=== PATIENT | female | born 1990 | race Caucasian/White ===

== ENCOUNTER 2016-08-18 17:42 | Emergency (ER) | payer OTHER ==
[2016-08-18 17:43] VITALS: BMI 33.5
[2016-08-18 17:54] VITALS: BP 118/53; PULSE 101; RESP 17; TEMP 97.7; O2SAT 98
--- NOTE | 2016-08-18 18:36 | ED PDOC ---
HPI: General Adult Time Seen by Provider: 08/18/16 17:56 Chief Complaint (Nursing): ENT Problem Chief Complaint (Provider): Nasal congestion, pressure at bridge of nose History Per: Patient History/Exam Limitations: no limitations Onset/Duration Of Symptoms: Days Have you had recent travel within the past 21 days to any of the following countries: [place], [place], [place] or [place]?: No Current Symptoms Are (Timing): Still Present Additional Complaint(s): PT states she was given Tx for benadryl last week and used it once but it did not work. PT states she saw her OB today but he told her to take benadryl. Past Medical History Reviewed: Historical Data, Nursing Documentation, Vital Signs Vital Signs: Last Vital Signs Temp 97.7 F 08/18/16 17:51 Pulse 101 H 08/18/16 17:51 Resp 17 08/18/16 17:51 BP 118/53 L 08/18/16 17:51 Pulse Ox 98 08/18/16 18:35 - Medical History PMH: Asthma, HIV - Surgical History Surgical History: Tonsillectomy - Family History Family History: States: No Known Family Hx - Living Arrangements Living Arrangements: With Family - Social History Current smoker - smoking cessation education provided: No Alcohol: None Drugs: Denies - Immunization History Hx Tetanus Toxoid Vaccination: No Hx Influenza Vaccination: No Hx Pneumococcal Vaccination: No - Home Medications Home Medications: Ambulatory Orders Medication Instructions Recorded Acetaminophen 325 mg PO Q4 #30 capsule 04/28/16 Ondansetron [Zofran] 4 mg PO Q8H #12 tab 04/28/16 Amoxicillin 500 mg PO BID #20 tablet 06/03/16 DiphenhydrAMINE [Benadryl] 50 mg PO Q4H PRN #30 cap 06/03/16 Cetirizine HCl [Zyrtec Allergy] 10 mg PO DAILY #30 sgl 08/18/16 - Allergies Allergies/Adverse Reactions: Allergies Allergy/AdvReac Type Severity Reaction Status Date / Time No Known Allergies Allergy Verified 08/18/16 17:50 Review of Systems ROS Statement: Except As Marked, All Systems Reviewed And Found Negative ENT: Positive for: Nose Discharge, Nose Congestion Physical Exam - Reviewed Nursing Documentation Reviewed: Yes Vital Signs Reviewed: Yes - Physical Exam Appears: Positive for: Well, Non-toxic, No Acute Distress Head Exam: Positive for: ATRAUMATIC, NORMAL INSPECTION, NORMOCEPHALIC Skin: Positive for: Normal Color, Warm, DRY Eye Exam: Positive for: Normal appearance ENT: Positive for: Normal ENT Inspection Neck: Positive for: Normal, Painless ROM Cardiovascular/Chest: Positive for: Regular Rate, Rhythm Respiratory: Positive for: Normal Breath Sounds. Negative for: Accessory Muscle Use, Respiratory Distress Back: Positive for: Normal Inspection Extremity: Positive for: Normal ROM Neurologic/Psych: Positive for: Alert, Oriented - ECG O2 Sat by Pulse Oximetry: 98 Disposition - Clinical Impression Clinical Impression: Seasonal allergies - Patient ED Disposition Is Patient to be Admitted: No - Disposition Disposition: Routine/Home Disposition Time: 18:35 Condition: GOOD Prescriptions: Cetirizine HCl [Zyrtec Allergy] 10 mg PO DAILY #30 sgl Instructions: Allergic Rhinitis (ED)
== END 2016-08-18 19:03 | disposition home or self-care (01) ==
LOC: H.ER 17:42
DX: J30.2 Other seasonal allergic rhinitis (principal)

== ENCOUNTER 2017-01-14 11:36 | Emergency (ER) | payer MEDICAID, OTHER ==
[2017-01-14 11:36] VITALS: BMI 33.5
[2017-01-14 11:45] VITALS: BP 116/71; TEMP 99.5; O2SAT 98
[2017-01-14 11:57] VITALS: PULSE 98; RESP 14
[2017-01-14] MEDS ORDERED: Naproxen 500 MG TAB PO ONE ×2 (12:09→12:22)
--- NOTE | 2017-01-14 12:53 | ED PDOC ---
HPI: General Adult Time Seen by Provider: 01/14/17 12:00 Chief Complaint (Nursing): Lower Extremity Problem/Injury History Per: Patient Additional Complaint(s): Pt. states last night she was running while wearing slippers. States she twisted her L ankle causing her to fall down and injure her L knee. Since then she's had pain to those areas plus her L leg. Denies numbness, tingling, other injury, head injury. Past Medical History Reviewed: Historical Data, Nursing Documentation, Vital Signs Vital Signs: Last Vital Signs Temp 99.5 F 01/14/17 11:54 Pulse 98 H 01/14/17 11:54 Resp 14 01/14/17 11:54 BP 116/71 01/14/17 11:54 Pulse Ox 98 01/14/17 13:24 - Medical History PMH: Asthma, HIV - Surgical History Surgical History: Tonsillectomy - Family History Family History: States: No Known Family Hx - Immunization History Hx Tetanus Toxoid Vaccination: No Hx Influenza Vaccination: No Hx Pneumococcal Vaccination: No - Home Medications Home Medications: Ambulatory Orders Medication Instructions Recorded Acetaminophen 325 mg PO Q4 #30 capsule 04/28/16 Ondansetron [Zofran] 4 mg PO Q8H #12 tab 04/28/16 Amoxicillin 500 mg PO BID #20 tablet 06/03/16 DiphenhydrAMINE [Benadryl] 50 mg PO Q4H PRN #30 cap 06/03/16 Cetirizine HCl [Zyrtec Allergy] 10 mg PO DAILY #30 sgl 08/18/16 Naproxen [Naprosyn] 500 mg PO BID PRN #14 tab 01/14/17 - Allergies Allergies/Adverse Reactions: Allergies Allergy/AdvReac Type Severity Reaction Status Date / Time No Known Allergies Allergy Verified 08/18/16 17:50 Review of Systems ROS Statement: Except As Marked, All Systems Reviewed And Found Negative Musculoskeletal: Positive for: Leg Pain Physical Exam - Physical Exam Appears: Positive for: Well, Non-toxic, No Acute Distress Skin: Positive for: Normal Color, Warm. Negative for: Rash Pulses-Dorsalis Pedis (L): 2+ Pulses-Dorsalis Pedis (R): 2+ Extremity: Positive for: Normal ROM, Other (L lower extremity: Mild tenderness and swelling to L lateral malleolus without deformity; mild tenderness to L medial knee without swelling or deformity; no foot or leg tenderness) - Laboratory Results Urine POC: Negative - ECG O2 Sat by Pulse Oximetry: 98 - Radiology X-Ray: Read By Radiologist X-Ray Interpretation: No Acute Disease - Progress ED Course And Treament: Naproxen 500mg PO ordered. Ankle/leg/knee xrays ordered. Ankle immobilized in ankle aircast splint applied by RN. Crutches provided. Initial urine test was negative. Pt. requested repeat. Repeat urine was positive. Denies pelvic pain, vaginal bleeding, trauma to abdomen. Instructed to f/u with TRUST OFFICER. Disposition - Clinical Impression Clinical Impression: Ankle sprain, Knee injury - Patient ED Disposition Is Patient to be Admitted: No - Disposition Referrals: [facility] [Outside] Ochoa Jolley III, MD [Staff Provider] - Disposition: Routine/Home Disposition Time: 13:16 Condition: STABLE Prescriptions: Naproxen [Naprosyn] 500 mg PO BID PRN #14 tab PRN Reason: Pain Instructions: Ankle Sprain (ED), Knee Sprain (ED), Crutch Instructions (ED), Ankle Stirrup Splint (ED) Forms: [employer] (Jamaican)
--- NOTE | 2017-01-14 13:12 | RAD ---
PROCEDURE: Radiographs of the left tibia and fibula. HISTORY: trauma COMPARISON: None available. TECHNIQUE: Frontal and lateral views obtained. FINDINGS: BONES: No fracture or destructive lesion. JOINT SPACES: Unremarkable. OTHER FINDINGS: None. IMPRESSION: Unremarkable radiographs of the left tibia and fibula.
--- NOTE | 2017-01-14 13:12 | RAD ---
PROCEDURE: Left Ankle Radiographs. HISTORY: trauma COMPARISON: None FINDINGS: BONES: Normal. No fracture. JOINTS: Normal. No osteoarthritis. Ankle mortise maintained. Talar dome intact SOFT TISSUES: Lateral soft tissue swelling. Please correlate clinically. OTHER FINDINGS: None. IMPRESSION: No evidence of fracture. Lateral soft tissue swelling.
--- NOTE | 2017-01-14 13:13 | RAD ---
PROCEDURE: Left Knee Radiographs. HISTORY: Pain. COMPARISON: None. FINDINGS: BONES: Normal. No fracture. JOINTS: Normal. No osteoarthritis. JOINT EFFUSION: None. OTHER FINDINGS: None. IMPRESSION: Normal radiographs of the left knee.
== END 2017-01-14 13:48 | disposition home or self-care (01) ==
LOC: H.ER 11:36
DX: S93.402A Sprain of unspecified ligament of left ankle, initial encounter (principal); S89.92XA Unspecified injury of left lower leg, initial encounter; W19.XXXA Unspecified fall, initial encounter; Y92.89 Other specified places as the place of occurrence of the external cause

== ENCOUNTER 2018-09-01 14:13 | Emergency (ER) | payer MEDICAID, OTHER ==
[2018-09-01 14:14] VITALS: BMI 33.5
[2018-09-01 14:24] VITALS: BP 115/80; TEMP 97
--- NOTE | 2018-09-01 15:17 | ED PDOC ---
HPI: Abdomen Time Seen by Provider: 09/01/18 14:35 Chief Complaint (Nursing): Female Genitourinary History Per: Patient History/Exam Limitations: no limitations Onset/Duration Of Symptoms: Days Outside of [place] travel?: No Current Symptoms Are (Timing): Still Present Additional Complaint(s): 27 yo F presents to ED for evaluation of lower abdominal and pelvic pain associa chapito with nausea and vomiting for 3 days. Pt reports pain comes and goes, currently 4/10, at the worse is 8/10. She has not taken anything for pain. SHe notes vomiting in precision lens generator and 2 days ago was vomiting all day. Pt also notes she has had an increase in her bowel movements. SHe usually goes only a couple of times a week, but now is going 1-2 times a day. She notes the stool is formed, non bloody. SHe denies fever, chills, urinary symptoms, recent travel or antibiotic use, no known sick contacts, and has not eaten anything abnormal. Pt's LMP 07/19, she notes she used to have irregular periods, she does not believe she is . Pt is A2 (1 miscarriage, 1 ), 3 c sections, pt was told she should not get again due to high risk from c sections, denies history of ectopic , abnormal vaginal bleeding or discharge. PMD: Codie PHAM Past Medical History Reviewed: Historical Data, Nursing Documentation, Vital Signs Vital Signs: Last Vital Signs Temp 97 F L 09/01/18 14:24 Pulse 95 H 09/01/18 14:24 Resp BP 115/80 09/01/18 14:24 Pulse Ox 98 09/01/18 14:24 Primary Care Provider: FAMILY PROVIDER,NO - Medical History PMH: Asthma, HIV - Surgical History Surgical History: Tonsillectomy, (3 times) - Family History Family History: States: Unknown Family Hx - Living Arrangements Living Arrangements: With Family - Immunization History Hx Tetanus Toxoid Vaccination: No Hx Influenza Vaccination: No Hx Pneumococcal Vaccination: No - Home Medications Home Medications: Ambulatory Orders Medication Instructions Recorded Acetaminophen with Codeine 1 tab PO Q8 PRN #20 tab 02/07/17 [Tylenol with Codeine No. 3 300 mg-30 mg] Albuterol HFA [Ventolin HFA 90 1 puff IH Q4 PRN 10/29/17 mcg/actuation (8 g)] Emtricita/rilpivir/tenofovir 1 tab PO DAILY 02/07/17 [Complera 200 MG-25 MG-300 MG] Acetaminophen [8 Hour Pain Relief] 650 mg PO Q8 PRN #20 tablet.er 09/01/18 Doxylamine/Pyridoxine HCl (B6) 1 each PO TID #30 tablet. 09/01/18 [Rocky Salazar 10-10 mg Tablet] - Allergies Allergies/Adverse Reactions: Allergies Allergy/AdvReac Type Severity Reaction Status Date / Time No Known Allergies Allergy Verified 02/07/17 08:48 Review of Systems Constitutional: Negative for: Fever, Chills Gastrointestinal: Positive for: Nausea, Vomiting, Abdominal Pain. Negative for: Diarrhea, Constipation, Melena Genitourinary Female: Positive for: Pelvic Pain. Negative for: Dysuria, Frequency, Hematuria, Vaginal Discharge, Vaginal Bleeding Physical Exam - Reviewed Nursing Documentation Reviewed: Yes Vital Signs Reviewed: Yes - Physical Exam Comments: GENERAL APPEARANCE: Patient is awake, alert, oriented x 3, in mild painful d istress. SKIN: Warm, dry; (-) cyanosis. EYES: (-) conjunctival pallor, (-) scleral icterus. ENMT: Mucous membranes moist. NECK: (-) tenderness, (-) stiffness, (-) lymphadenopathy. CHEST AND RESPIRATORY: (-) rales, (-) rhonchi, (-) wheezes; breath sounds equal bilaterally. HEART AND CARDIOVASCULAR: (-) irregularity; (-) murmur, (-) gallop. ABDOMEN AND GI: (-) distention. Bowel sounds active; (+)diffuse lower abdominal tenderness, (-) guarding, (-) rebound, (-) palpable masses, (-) CVA te nderness. EXTREMITIES: (-) deformity, (-) edema, (+) distal pulses. NEURO AND PSYCH: Mental status as above; (-) focal findings. - Laboratory Results Result Diagrams: 09/01/18 15:34 09/01/18 15:34 - ECG O2 Sat by Pulse Oximetry: 98 Medical Decision Making Medical Decision Makin:35 initial eval - abdominal pain -- U preg --> positive, OB work up ordered -- UA -- labs -- beta hcg quant -- tylenol PO, reglan IV -- OB US -- re eval 16:30 Date of service: 09/01/2018 HISTORY: pain COMPARISON: None available. TECHNIQUE: Transvaginal FINDINGS: UTERUS: Measures 9.6 x 4.7 x 5.0 cm. Normal in size and appearance. No fibroid or other mass lesion seen. ENDOMETRIUM: Measures 26 mm in diameter. Abnormally thickened. No endometrial fluid appreciated. No intrauterine gestation identified. CERVIX: No cervical abnormality identified. RIGHT OVARY: Measures 3.2 x 1.5 x 2.6 cm. No solid mass. Normal flow. LEFT OVARY: Measures 3.3 x 2.0 x 3.1 cm. No solid mass. Normal flow. FREE FLUID: No significant free fluid noted. OTHER FINDINGS: None. IMPRESSION: Thickened endometrium. No intrauterine gestation. Please note that ectopic cannot be excluded in the absence of demonstrated intrauterine gestation. 16:50 on re eval pt reports pain has been okay, she did not want Tylenol, she notes feeling hungry and ready to leave abdomen is soft and non tender, no acute abdomen, labs wnl, except hypokalemia, will treat with oral potassium, VSS, will have pt return in 2 days for repeat hcg Discussed results, diagnosis, treatment, return precautions and f/u with pt who is understanding, in agreement and stable for dc Disposition - Clinical Impression Clinical Impression: , location unknown, Abdominal pain during , Nausea and vomiting during - Patient ED Disposition Is Patient to be Admitted: No Counseled Patient/Family Regarding: Studies Performed, Diagnosis, Need For Followup, Rx Given - Disposition Referrals: Favio Lester MD [Staff Provider] - [facility] [Outside] Disposition: Routine/Home Disposition Time: 16:53 Condition: IMPROVED Additional Instructions: Please return to ED in 2 days for repeat hcg level The emergency medical care you received today was directed at your acute symptoms. If you were prescribed any medication, please fill it and take as directed. It may take several days for your symptoms to resolve. Return to the Emergency Department if your symptoms worsen, do not improve, or if you have any other problems. Please contact your doctor in 2 days for re-evaluation and follow up / or call one of the physicians/clinics you have been referred to that are listed on the Patient Visit Information form that is included in your discharge packet. Bring any paperwork you were given at discharge with you along with any medications you are taking to your follow up visit. Our treatment cannot replace ongoing medical care by a primary care provider (PCP) outside of the emergency department Prescriptions: Acetaminophen [8 Hour Pain Relief] 650 mg PO Q8 PRN #20 tablet.er PRN Reason: Pain, Moderate (4-7) Doxylamine/Pyridoxine HCl (B6) [Rocky Salazar 10-10 mg Tablet] 1 each PO TID #30 tablet. Instructions: Nausea and Vomiting of (DC), Stomach Pain in Early Forms: [facility] (Upper Sorbian) Print Language: TAJIK - POA Present On Arrival: None
[2018-09-01 15:47] LABS: BASO % 0.5 % (0.0-2.0); EOS # 0.1 K/uL (0.0-0.7); EOS % 0.8 % (0.0-4.0); HEMOGLOBIN 12.8 g/dL (12.0-16.0); LYMPH # 1.4 K/uL (1.0-4.3); LYMPH % 17.5 % (20.0-40.0); MEAN CELL VOLUME 85.6 fl (81.0-99.0); MEAN CORPUSCULAR HEMOGLOBIN 28.3 pg (27.0-31.0); MEAN CORPUSCULAR HGB CONC 33.1 g/dL (33.0-37.0); MEAN PLATELET VOLUME 8.4 fl (7.2-11.7); MONO # 0.6 K/uL (0.0-0.8); MONO % 7.7 % (0.0-10.0); NEUT # 5.9 K/uL (1.8-7.0); NEUT % 73.5 % (50.0-75.0); RBC 4.51 Mil/uL (3.80-5.20); RED CELL DISTRIBUTION WIDTH 14.1 % (11.5-14.5)
[2018-09-01 15:52] LABS: SQUAMOUS EPITHIAL 4 /hpf (0-5); URINE BACTERIA FEW (<OCC); URINE BILIRUBIN NEGATIVE (NEGATIVE); URINE BLOOD NEGATIVE (NEGATIVE); URINE CLARITY CLOUDY (Clear); URINE COLOR YELLOW (YELLOW); URINE GLUCOSE (UA) NEG (NEGATIVE); URINE LEUKOCYTE ESTERASE NEG Leu/uL (Negative); URINE PROTEIN 30 mg/dL (NEGATIVE); URINE UROBILINOGEN 0.2-1.0 mg/dL (0.2-1.0)
[2018-09-01 16:00] LABS: ALB/GLOB RATIO 1.3 (1.0-2.1); ALBUMIN 4.1 g/dL (3.5-5.0); ALT/SGPT 12 U/L (9-52); AST/SGOT 13 U/L (14-36); BLOOD UREA NITROGEN 9 mg/dl (7-17); CALCIUM 8.5 mg/dL (8.4-10.2); GFR NON-AFRICAN AMERICAN > 60
[2018-09-01] MEDS ORDERED: Potassium Chloride 20 mEq ER Tab PO ONE ×2 (16:06→17:03)
--- NOTE | 2018-09-01 16:28 | US ---
Date of service: 09/01/2018 HISTORY: pain COMPARISON: None available. TECHNIQUE: Transvaginal FINDINGS: UTERUS: Measures 9.6 x 4.7 x 5.0 cm. Normal in size and appearance. No fibroid or other mass lesion seen. ENDOMETRIUM: Measures 26 mm in diameter. Abnormally thickened. No endometrial fluid appreciated. No intrauterine gestation identified. CERVIX: No cervical abnormality identified. RIGHT OVARY: Measures 3.2 x 1.5 x 2.6 cm. No solid mass. Normal flow. LEFT OVARY: Measures 3.3 x 2.0 x 3.1 cm. No solid mass. Normal flow. FREE FLUID: No significant free fluid noted. OTHER FINDINGS: None. IMPRESSION: Thickened endometrium. No intrauterine gestation. Please note that ectopic cannot be excluded in the absence of demonstrated intrauterine gestation.
[2018-09-01 17:09] VITALS: PULSE 86; O2SAT 99
== END 2018-09-01 16:56 | disposition home or self-care (01) ==
LOC: H.ER 14:13
DX: O26.91 Pregnancy related conditions, unspecified, first trimester (principal); R10.2 Pelvic and perineal pain; O21.0 Mild hyperemesis gravidarum; O99.511 Diseases of the respiratory system complicating pregnancy, first trimester; J45.909 Unspecified asthma, uncomplicated; E87.6 Hypokalemia
CPT/HCPCS: 76817; 80053; 81003; 81025; 84702; 85025; 96374; 99284; J2765